=== PATIENT | male | born 1955 | race Caucasian/White ===

== ENCOUNTER 2021-02-02 05:34 | Inpatient (IN) | payer MEDICARE, BC ==
[2021-02-01 10:02] LABS: BASOPHILS % (AUTO) 1 % (0-1); EOSINOPHILS % (AUTO) 2 % (1-7); LYMPHOCYTES % (AUTO) 22 % (22-44); MEAN CORPUSCULAR HEMOGLOBIN 33.4 pg (27.5-34.5); MEAN CORPUSCULAR HGB CONC 33.7 g/dL (33.2-36.2); MEAN PLATELET VOLUME 7.1 fL (7.4-10.4); MONOCYTES % (AUTO) 12 % (2-9); NEUTROPHILS % (AUTO) 63 % (42-75); PLATELET COUNT 202 x10^3/uL (130-400); RED BLOOD COUNT 3.97 x10^6/uL (4.38-5.82); RED CELL DISTRIBUTION WIDTH 14.8 % (9.4-14.8)
[2021-02-01 10:06] LABS: MD NO
[2021-02-01 10:15] LABS: ALANINE AMINOTRANSFERASE 12 U/L (12-78); ALBUMIN 3.6 g/dL (3.4-5.0); CALCIUM 9.2 mg/dL (8.5-10.1)
[2021-02-01 10:38] LABS: ALKALINE PHOSPHATASE 67 U/L (45-117); ANION GAP 3 mmol/L (5-15); BILIRUBIN,TOTAL 0.6 mg/dL (0.2-1.0); CHLORIDE 107 mmol/L (98-107); CREATININE 0.81 mg/dL (0.7-1.3); TOTAL PROTEIN 6.5 g/dL (6.4-8.2)
[~2021-02-02] VITALS: Ht 165.1 cm; Wt 76.4 kg
[~2021-02-02 05:34] MED LIST: ASPI81TA45 PO; ATOR40TA78 PO; CARB1TAB48 PO; CHOL10003 PO; CLOP75TA PO; DOXE3TAB3 PO; MAGN100T6 PO; NAPR220C2 PO
[2021-02-02] MEDS ORDERED: CHLORHEXIDINE 15 ML UDC PO ONE (06:30)
[2021-02-02] MEDS ORDERED: LACTATED RINGERS 1,000 ML IV SCH (06:30)
[2021-02-02] MEDS ORDERED: FENTANYL PF 100 MCG/2ML ONE (06:57)
[2021-02-02] MEDS ORDERED: MIDAZOLAM 1 MG/ML, 2ML ONE (06:57)
[2021-02-02] MEDS ORDERED: BUPIVACAINE/PF-EPI 0.5% 1:200K INFIL ONE (08:31)
[2021-02-02] MEDS ORDERED: HEPARIN 5,000 UNITS/ML, 1ML IV ONE (08:31)
[2021-02-02] MEDS ORDERED: BACITRACIN 50,000 UNIT IRRIG ONE (08:32)
[2021-02-02] MEDS ORDERED: VISIPAQUE 270 MG/ML, 50ML BOTTLE IV ONE ×2 (08:33→09:42)
[2021-02-02] MEDS ORDERED: MEPERIDINE/PF 25MG/0.5ML IVPush PRN (09:00)
[2021-02-02] MEDS ORDERED: PROMETHAZINE 25 MG/ML, 1ML IVPush PRN (09:00)
[2021-02-02] MEDS ORDERED: HYDROmorphone 1 MG/ML, 1ML INJ IVPush PRN (09:00)
[2021-02-02] MEDS ORDERED: ONDANSETRON 2MG/ML, 2ML IVPush PRN ×2 (09:00→10:30)
[2021-02-02] MEDS ORDERED: FENTANYL PF 100 MCG/2ML IV PRN (09:00)
[2021-02-02] MEDS ORDERED: HYDROcodone/APAP 7.5-325MG/15ML UDC PO PRN (09:00)
[2021-02-02] MEDS ORDERED: OXYcodone 5 MG/5 ML ORAL.SOL UDC PO PRN (09:00)
[2021-02-02] MEDS ORDERED: CEFAZOLIN 1,000 MG ONE (09:57)
[2021-02-02] MEDS ORDERED: ROCURONIUM 10MG/ML,5ML ONE (09:57)
[2021-02-02] MEDS ORDERED: GLYCOPYRROLATE 0.2MG/1ML, 5ML ONE (09:57)
[2021-02-02] MEDS ORDERED: NEOSTIGMINE 1 MG/ML, 10ML ONE (09:57)
[2021-02-02] MEDS ORDERED: PROPOFOL 10 MG/ML, 20ML ONE (09:57)
[2021-02-02] MEDS ORDERED: SUCCINYLCHOLINE 20 MG/ML, 10ML ONE (09:57)
[2021-02-02] MEDS ORDERED: ONDANSETRON 2MG/ML, 2ML ONE (09:57)
[2021-02-02] MEDS: HEPARIN 5,000 UNITS/ML, 1ML SQ SCH ×2 (10:30→18:21)
[2021-02-02] MEDS ORDERED: HYDROcodone/APAP 5/325 TABLET PO PRN (10:30)
[2021-02-02] MEDS ORDERED: morphine SULFATE 10 MG/ML, 1ML IV PRN (10:30)
[2021-02-02] MEDS ORDERED: LABETALOL 5MG/ML 40ML VIAL IVPush PRN (10:30)
[2021-02-02] MEDS ORDERED: ACETAMINOPHEN 650 MG SUPP PR PRN (10:30)
[2021-02-02 13:45] VITALS: BP 105/65
[2021-02-02] MEDS ORDERED: CARBIDOPA/LEVODOPA 25 MG/250 MG TABLET PO SCH (16:00)
[2021-02-02] MEDS: D5%-0.45% NACL 1,000 ML IV SCH ×2 (16:01→20:47)
[2021-02-02 18:19] VITALS: BP 93/57
[2021-02-02 20:45] VITALS: BP 109/63
[2021-02-02] MEDS ORDERED: CLOPIDOGREL 75 MG TABLET PO SCH (21:00)
[2021-02-02] MEDS ORDERED: ATORVASTATIN 40 MG TABLET PO SCH (21:00)
[2021-02-03 00:07] VITALS: BP 107/63
[2021-02-03] MEDS: HEPARIN 5,000 UNITS/ML, 1ML SQ SCH (02:22)
[2021-02-03 04:24] VITALS: BP 99/60
[2021-02-03] MEDS: CARBIDOPA/LEVODOPA 25 MG/250 MG TABLET PO SCH ×2 (06:30→06:31)
[2021-02-03] MEDS ORDERED: CARBIDOPA 25 MG TABLET PO SCH (06:30)
[2021-02-03] MEDS ORDERED: HYDR-2214 PO (08:33)
[2021-02-03] MEDS ORDERED: ASPIRIN 81 MG TABLET EC PO SCH (09:00)
[2021-02-03] MEDS ORDERED: CHOLECALCIFEROL 1,000 UNIT TABLET PO SCH (09:00)
[2021-02-03 09:05] VITALS: BP 96/58
[2021-02-03] MEDS ORDERED: CARBIDOPA/LEVODOPA 25 MG/100 MG TABLET PO SCH (12:30)
== END 2021-02-03 10:41 | disposition home or self-care (01) | DRG 39 ==
LOC: ORIP 05:34 → 4NE 13:37
PROVIDERS: ADMIT Surgery Vascular Surgery; ATTEND Surgery Vascular Surgery
PROC: 03CJ0ZZ Extirpation of Matter from Left Common Carotid Artery, Open Approach (ICD-10-PCS; 2021-02-02)
PROC: 03UJ0KZ Supplement Left Common Carotid Artery with Nonautologous Tissue Substitute, Open Approach (ICD-10-PCS; 2021-02-02)
PROC: 03UL0KZ Supplement Left Internal Carotid Artery with Nonautologous Tissue Substitute, Open Approach (ICD-10-PCS; 2021-02-02)
PROC: 03CL0ZZ Extirpation of Matter from Left Internal Carotid Artery, Open Approach (ICD-10-PCS; principal; 2021-02-02 07:30)
DX: I65.22 Occlusion and stenosis of left carotid artery (principal); Z20.822 Contact with and (suspected) exposure to COVID-19; G20 Parkinson's disease; Z88.2 Allergy status to sulfonamides; Z88.7 Allergy status to serum and vaccine; G89.18 Other acute postprocedural pain; G52.3 Disorders of hypoglossal nerve
CPT/HCPCS: 36224; 36415; 71046; 80053; 85025; 86850; 86900; 88304; 93005; G0378; J0690; J1644; J2250; J2405; J2704; J2710; J3010; Q9966; U0005; C1768; J0330; J7120; U0003